=== PATIENT | male | born 1980 | race Caucasian/White ===

== ENCOUNTER 2017-04-27 10:49 | Emergency (ER) | payer OTHER ==
[~2017-04-27] VITALS: Ht 193 cm; Wt 106.6 kg
[2017-04-27] MEDS ORDERED: NAPROXEN500 MG PO (11:00)
--- NOTE | 2017-04-27 17:18 | EKG ---
[facility] [address] [facility] [place] [address] Signed Normal sinus rhythm Normal ECG No previous ECGs available Confirmed by STANTON TOMPKINS MD ([id number] on 04/27/2017 5:18:01 PM Electronically Signed By: STANTON TOMPKINS MD 04/27/17 1718 PATIENT NAME: JIM CARMONA Electrocardiogram DATE OF : 76 PHYSICIAN: STANTON TOMPKINS MD REPORT #: [id number] REPORT IS CONFIDENTIAL AND NOT TO BE RELEASED WITHOUT AUTHORIZATION
== END 2017-04-27 13:22 | disposition home or self-care (01) ==
LOC: ED 10:49
DX: R00.2 Palpitations (principal)
CPT/HCPCS: 71020; 80053; 84484; 85025; 85610; 85730; 93005; 93010; 96360; 99284; J7040